=== PATIENT | female | born 1965 | race Caucasian/White ===

== ENCOUNTER 2019-01-10 23:28 | Emergency (ER) | payer SELFPAY ==
[~2019-01-10] VITALS: Ht 157.5 cm; Wt 81.6 kg
[2019-01-10 23:33] VITALS: BP 147/79
--- NOTE | 2019-01-10 23:37 | NUR ---
PT AMBULATED TO BED 9. PROVIDED WITH URINE CUP.
--- NOTE | 2019-01-10 23:43 | NUR ---
PATIENT PRESENTS TO ED WITH C/O INTERMITTENT EPIGASTRIC PAIN X1 HR. ALSO C/O COUGH WITH NAUSEA. NON-RADIATING PAIN. 9/10. NO SOB/DYSPNEA.; SKIN IS PINK/WARM/DRY; AAOX4 WITH EVEN AND STEADY GAIT; LUNGS CLEAR BL; HR EVEN AND REGULAR; PT DENIES ANY FEVER, CP, SOB, OR COUGH AT THIS TIME; PATIENT STATES PAIN OF 9/10 AT THIS TIME; VSS; PATIENT POSITIONED FOR COMFORT; HOB ELEVATED; BEDRAILS UP X2; BED DOWN. ER MD MADE AWARE OF PT STATUS.
--- NOTE | 2019-01-10 23:44 | NUR ---
DR. HOFFMANN BEDSIDE EVALUATING PT
[2019-01-10] MEDS ORDERED: DICYCLOMINE HCL LIQUID 20 MG, ALUMINUM HYD/MAG/SIMETHICONE 30 ML, LIDOCAINE VISCOUS 2% ... PO ONE ×3 (23:50)
[2019-01-11 00:18] VITALS: BP 134/76
--- NOTE | 2019-01-11 00:18 | NUR ---
Patient discharged with v/s stable. Written and verbal after care instructions given and explained. Patient alert, oriented and verbalized understanding of instructions. Ambulatory with steady gait. All questions addressed prior to discharge. ID band removed. Patient advised to follow up with PMD. Rx of PRILSOEC, MOTRIN given. Patient educated on indication of medication including possible reaction and side effects. Opportunity to ask questions provided and answered.
== END 2019-01-11 00:18 | disposition home or self-care (01) ==
LOC: MED 23:28
DX: K21.9 Gastro-esophageal reflux disease without esophagitis (principal); Z90.49 Acquired absence of other specified parts of digestive tract
CPT/HCPCS: 81002; 81025; 99283

== ENCOUNTER 2024-01-29 23:25 | Emergency (ER) | payer SELFPAY ==
[~2024-01-29] VITALS: Ht 161.3 cm; Wt 68.0 kg
[2024-01-29 23:58] VITALS: BP 118/80; PULSE 82; RESP 18; TEMP 98; O2SAT 98
[2024-01-30 00:23] VITALS: BP 139/96; PULSE 94; RESP 14
[2024-01-30 00:27] VITALS: O2SAT 98
[2024-01-30 00:44] LABS: BASOPHILS % (AUTO) 0.5 % (0.0-2.0); EOSINOPHILS % (AUTO) 0.5 % (0.0-4.0); HEMATOCRIT 38.9 % (36-48); HEMOGLOBIN 13.2 g/dL (12.0-16.0); LYMPHOCYTES # (AUTO) 0.4 K/uL (2.5-16.5); LYMPHOCYTES % (AUTO) 4.8 % (20.5-51.1); MEAN CORPUSCULAR HEMOGLOBIN 29 pg (27-31); MEAN CORPUSCULAR HGB CONC 34 g/dL (33-37); MEAN CORPUSCULAR VOLUME 86.1 fL (80-94); MONOCYTES # (AUTO) 0.2 K/uL (0.8-1.0); MONOCYTES % (AUTO) 2.2 % (1.7-9.3); NEUTROPHILS # (AUTO) 8.3 K/uL (1.8-7.7); PLATELET COUNT (AUTO) 253 K/uL (140-450); RED BLOOD CELL COUNT(AUTO) 4.52 MIL/uL (4.20-5.40); RED CELL DISTRIBUTION WIDTH 13.6 % (11.6-13.7)
[2024-01-30 00:49] LABS: APPEARANCE,URINE CLEAR (CLEAR); BILIRUBIN,URINE NEGATIVE (NEGATIVE); BLOOD, URINE 1+ (NEGATIVE); COLOR,URINE YELLOW (YELLOW); LEUKOCYTE ESTERASE ,URINE NEGATIVE (NEGATIVE); NITRITE, URINE NEGATIVE (NEGATIVE); PROTEIN,URINE NEGATIVE (NEGATIVE); UGLUCOSE 2+ (NEGATIVE); UROBILINOGEN,URINE 0.2 EU/dL (0.2 - 1)
[2024-01-30 00:54] LABS: BACTERIA,URINE FEW /HPF (None Seen); MUCUS,URINE None Seen /LPF (None Seen); RBC,URINE 0-5 /HPF (0-5); SQUAMOUS EPITHELIAL CELL,UR 0-3 (FEW) /LPF (0-3 (FEW)); WBC,URINE 0-5 /HPF (0-5)
[2024-01-30] MEDS: NACL 0.9% 1,000 ML IV ONE ×2 (00:56→01:44)
[2024-01-30] MEDS: ALUMINUM HYD/MAG/SIMETHICONE 30 ML UDC PO ONE (00:57)
[2024-01-30] MEDS: KETOROLAC 30 MG/ML VIAL IVP ONE (00:57)
[2024-01-30] MEDS: ONDANSETRON 4 MG/2 ML VIAL IVP ONE (00:58)
[2024-01-30 01:09] LABS: ALANINE AMINOTRANSFERASE 25 U/L (12-78); ALBUMIN 3.4 g/dL (3.4-5.0); ALKALINE PHOSPHATASE 127 U/L (50-136); ASPARTATE AMINOTRANSFERASE 19 U/L (15-37); CALCIUM 8.6 mg/dL (8.5-10.1); CARBON DIOXIDE 28.9 mmol/L (21-32); CHLORIDE 97 mmol/L (98-107); CREATININE 0.8 mg/dL (0.6-1.3); GFR ARICAN-AMERICAN 95 mL/min (>90); GFR NON ARICAN-AMERICAN 79 mL/min (>90); GLUCOSE 323 mg/dL (74-106); LIPASE 15 U/L (16-77); POTASSIUM 3.9 mmol/L (3.5-5.1); SODIUM SERUM 134 mmol/L (136-145); TOTAL BILIRUBIN 0.5 mg/dL (0.0-1.0); TOTAL PROTEIN, SERUM 7.8 g/dL (6.4-8.2); UREA NITROGEN, BLOOD 21 mg/dL (7-18)
[2024-01-30 03:00] VITALS: O2SAT 98
[2024-01-30] MEDS ORDERED: BISM262C52 PO (03:06)
[2024-01-30] MEDS ORDERED: AMOX1TAB8 PO (03:06)
[2024-01-30] MEDS ORDERED: FAMO-90 PO (03:06)
[2024-01-30] MEDS ORDERED: MAG355OR2 PO (03:06)
== END 2024-01-30 03:33 | disposition home or self-care (01) ==
LOC: MED 23:25
DX: K52.9 Noninfective gastroenteritis and colitis, unspecified (principal); E11.9 Type 2 diabetes mellitus without complications; Z79.4 Long term (current) use of insulin; Z79.899 Other long term (current) drug therapy
CPT/HCPCS: 36415; 80053; 81001; 81025; 83690; 84484; 85025; 96361; 96374; 96375; 99284; J1885; J2405; J7030